=== PATIENT | male | born 1985 | race Caucasian/White ===

== ENCOUNTER 2020-12-27 21:33 | Emergency (ER) | payer OTHER ==
[~2020-12-27] VITALS: Ht 185.4 cm; Wt 108.9 kg
[~2020-12-27 21:33] MED LIST: CIPR500 PO; HYDGUAL120 PO; OMEP20ER PO; PROM25 PO; RXTRAM50 PO; TRAM50 PO
[2020-12-27] MEDS ORDERED: LORA1SY PO (22:18)
[2020-12-27] MEDS ORDERED: CANDESARTAN CIL16 MG PO (22:18)
== END 2020-12-27 22:29 | disposition home or self-care (01) ==
LOC: ER 21:33
DX: U07.1 COVID-19 (principal); Z79.899 Other long term (current) drug therapy
CPT/HCPCS: 99282